=== PATIENT | male | born 1990 | race Hispanic/Latino ===

== ENCOUNTER 2020-05-03 04:46 | Emergency (ER) | payer OTHER ==
[2020-05-03] MEDS ORDERED: SODIUM CHLORIDE 0.9% 1000ML 1,000 ML IV ONE (04:47)
[2020-05-03] MEDS ORDERED: KETOROLAC TROMETHAMINE 30MG/ML ONE (05:40)
== END 2020-05-03 07:55 | disposition home or self-care (01) ==
LOC: EDH 04:46
DX: R51.9 Headache, unspecified (principal); R11.2 Nausea with vomiting, unspecified; Z20.828 Contact with and (suspected) exposure to other viral communicable diseases
CPT/HCPCS: 70450; 87426; 96361; 96374; 99284; J1885; J7030; U0003

== ENCOUNTER 2022-06-14 17:48 | Emergency (ER) | payer BC, OTHER ==
[~2022-06-14] VITALS: Ht 162.6 cm; Wt 77.1 kg
[2022-06-14] MEDS ORDERED: IBUP-2070 PO (19:28)
[2022-06-14] MEDS ORDERED: CYCL10TA16 PO (19:28)
[2022-06-14 20:25] VITALS: BP 147/81
== END 2022-06-14 20:29 | disposition home or self-care (01) ==
LOC: EDH 17:48
DX: G43.909 Migraine, unspecified, not intractable, without status migrainosus (principal); Z79.899 Other long term (current) drug therapy
CPT/HCPCS: 70450

== ENCOUNTER 2022-12-23 13:08 | Emergency (ER) | payer BC ==
[~2022-12-23] VITALS: Ht 165.1 cm; Wt 78.0 kg
[~2022-12-23 13:08] MED LIST: CYCL10TA16 PO; IBUP-2070 PO
[2022-12-23 15:02] LABS: BASOPHILS % (AUTO) 0.4 % (0.0-5.0); EOSINOPHILS % (AUTO) 0.1 % (0.0-8.0); HEMATOCRIT 45.9 % (42-54); LYMPHOCYTES % (AUTO) 16.6 % (21.0-51.0); MEAN CORPUSCULAR HEMOGLOBIN 29.1 pg (27.0-33.0); MEAN CORPUSCULAR HGB CONC 33.8 g/dL (32.0-36.0); MEAN CORPUSCULAR VOLUME 86.1 fL (79-99); MONOCYTES % (AUTO) 9.6 % (3.0-13.0); NEUTROPHILS % (AUTO) 72.9 % (40.0-77.0); PLATELET COUNT (AUTO) 220 K/uL (130-400); RED BLOOD CELL COUNT(AUTO) 5.33 MIL/uL (4.50-6.20); RED CELL DISTRIBUTION WIDTH 12.7 % (11.0-15.5)
[2022-12-23 15:13] LABS: POTASSIUM 3.8 mmol/L (3.5-5.1)
[2022-12-23 15:20] LABS: ALBUMIN 4.4 g/dL (3.5-5.0); TOTAL PROTEIN, SERUM 8.2 g/dL (6.0-8.3)
[2022-12-23 16:27] LABS: APPEARANCE,URINE CLEAR (CLEAR); BILIRUBIN,URINE NEGATIVE (NEGATIVE); COLOR,URINE YELLOW (YELLOW); GLUCOSE, URINE (UA) NEGATIVE (NEGATIVE); KETONES,URINE 20 mg/dL (NEGATIVE); LEUKOCYTE ESTERASE ,URINE NEGATIVE Leu/uL (NEGATIVE); NITRATE,URINE NEGATIVE (NEGATIVE); OCCULT BLOOD,URINE SMALL (NEGATIVE); PH,URINE 5.5 (5.0-8.0); PROTEIN,URINE 20 mg/dL (NEGATIVE); UROBILINOGEN,URINE 0.2 mg/dL (0.2-1.0)
[2022-12-23 16:40] LABS: MUCUS,URINE FEW LPF (None Seen); WBC,URINE 0-1 /HPF (0-1)
[2022-12-23] MEDS ORDERED: FLUT16H NASAL (16:50)
[2022-12-23] MEDS ORDERED: LORA10TA7 PO (16:50)
== END 2022-12-23 17:03 | disposition home or self-care (01) ==
LOC: EDH 13:08
DX: J01.90 Acute sinusitis, unspecified (principal); Z20.822 Contact with and (suspected) exposure to COVID-19
CPT/HCPCS: 99283; 87635; 80053; 85025; 87880; 87804 ×2; 81001; 36415; C9803

== ENCOUNTER 2024-08-05 21:20 | Emergency (ER) | payer SELFPAY ==
[~2024-08-05] VITALS: Ht 165.1 cm; Wt 79.4 kg
[~2024-08-05 21:20] MED LIST changes: +FLUT16H NASAL; +LORA10TA7 PO
[2024-08-05] MEDS: morPHINE 4 MG SYG IVP ONE (22:30)
[2024-08-05] MEDS: 0.9%NACL 1000ML 1,000 ML IV ONE (22:30)
[2024-08-05] MEDS: ondanSETRON 4MG INJ IVP ONE (22:30)
[2024-08-05] MEDS: PANTOPrazole 40 MG/VIAL IVP ONE (22:30)
[2024-08-05 22:37] LABS: BASOPHILS # (AUTO) 0.03 K/uL (0.00-0.20); BASOPHILS % (AUTO) 0.2 % (0.0-5.0); EOSINOPHILS # (AUTO) 0.12 K/uL (0.00-0.70); EOSINOPHILS % (AUTO) 0.9 % (0.0-8.0); HEMATOCRIT 44.6 % (42-54); IMMATURE GRANULOCYTE ABSOLUTE 0.04 K/uL (0-1); LYMPHOCYTES # (AUTO) 1.8 K/uL (1.0-4.8); MEAN CORPUSCULAR HEMOGLOBIN 30.2 pg (27.0-33.0); MEAN CORPUSCULAR HGB CONC 34.8 g/dL (32.0-36.0); MEAN CORPUSCULAR VOLUME 86.8 fL (79-99); MONOCYTES # (AUTO) 0.9 K/uL (0.1-1.0); NEUTROPHILS # (AUTO) 10.1 K/uL (1.8-7.7); NEUTROPHILS % (AUTO) 77.6 % (40.0-77.0); PLATELET COUNT (AUTO) 254 K/uL (130-400); RED BLOOD CELL COUNT(AUTO) 5.14 MIL/uL (4.50-6.20); RED CELL DISTRIBUTION WIDTH 12.8 % (11.0-15.5)
[2024-08-05 22:48] LABS: APPEARANCE,URINE CLEAR (CLEAR); BILIRUBIN,URINE NEGATIVE (NEGATIVE); COLOR,URINE YELLOW (YELLOW); GLUCOSE, URINE (UA) NEGATIVE (NEGATIVE); KETONES,URINE 40 mg/dL (NEGATIVE); LEUKOCYTE ESTERASE ,URINE NEGATIVE Leu/uL (NEGATIVE); NITRATE,URINE NEGATIVE (NEGATIVE); OCCULT BLOOD,URINE SMALL (NEGATIVE); PH,URINE 5.5 (5.0-8.0); PROTEIN,URINE 20 mg/dL (NEGATIVE); UROBILINOGEN,URINE 0.2 mg/dL (0.2-1.0)
[2024-08-05 22:49] LABS: ADD UA MICROSCOPIC YES
[2024-08-05 22:51] LABS: BACTERIA,URINE RARE /HPF (None Seen); MUCUS,URINE MANY LPF (None Seen)
[2024-08-05 22:53] LABS: CREATININE 0.9 mg/dL (0.5-1.3); POTASSIUM 4.3 mmol/L (3.5-5.1)
[2024-08-05 22:55] LABS: AMPHET/METH SCREEN,URINE NEGATIVE (NEGATIVE); BARBITURATE SCREEN, URINE NEGATIVE (NEGATIVE); BENZODIAZEPINES SCREEN,URINE NEGATIVE (NEGATIVE); CANNABINOID SCREEN,URINE NEGATIVE (NEGATIVE); COCAINE SCREEN,URINE NEGATIVE (NEGATIVE); OPIATE SCREEN,URINE NEGATIVE (NEGATIVE); PHENCYCLIDINE SCREEN,URINE NEGATIVE (NEGATIVE)
[2024-08-05] MEDS ORDERED: IOHEXOL 350 MG/ML 100ML INFUS..BTL IV ONE (23:17)
--- NOTE | 2024-08-05 23:41 | HMCIMG ---
CT ABDOMEN/PELVIS W/CONTRAST HISTORY: Abdominal pain COMPARISON: 09/14/2013 TECHNIQUE: Multiple sequential axial images of the abdomen and pelvis were obtained from the dome of the diaphragm through symphysis pubis. Patient was given 100 cc of Omnipaque through intravenous route. Oral contrast was not given. FINDINGS: No pleural effusion is seen bilaterally. There is no evidence of parenchymal disease or pulmonary nodule of the visualized lower lungs. Degenerative changes of the thoracolumbar spine are present. The heart is not enlarged. The liver, spleen, adrenal glands and pancreas are unremarkable. There is no evidence of hydronephrosis bilaterally. No evidence of renal stone is seen. Fecal material is seen in the colon. There are normal size retroperitoneal and mesenteric lymph nodes. No ascites is seen. No CT evidence of acute appendicitis is seen. Clinical correlation is recommended. There is mild fluid-filled small bowel loops and colon may be related to enterocolitis. Pelvic sidewalls are symmetric bilaterally. Bladder is poorly distended. IMPRESSION: 1. No CT evidence of acute appendicitis is seen. Clinical correlation is recommended. There is mild fluid-filled small bowel loops and colon may be related to enterocolitis. CT was performed with one or more following dose reduction techniques: automated exposure control, adjustment of the mA and kv according to patient's size, or use of a iterative reconstruction technique.
[2024-08-06] MEDS ORDERED: DICY20TA2 PO (00:16)
[2024-08-06] MEDS ORDERED: ONDA-243 PO (00:16)
--- NOTE | 2024-08-06 00:18 | ERN ---
ED Note History of Present Illness Stated Complaint: VOMITTING,MULTIPLE COMPLAINTS Chief Complaint: Abdominal Pain Time Seen by MD: 21:27 Time Seen by Midlevel: 21:27 Dictation: The patient is a 33-year-old male with no medical history who presents to the emergency department with nonbloody vomiting, nonbloody diarrhea onset this morning. Patient denies any fevers. Denies any cough or upper respiratory symptoms. Allergies: Coded Allergies: No Known Allergies (Unverified Allergy, Unknown, 11/16/18) Home Meds Active Scripts Loratadine (Loratadine) 10 Mg Tablet, 10 MG PO DAILY, #7 TAB Prov:NICOLE FRANCIS V POLICY ANALYST 12/23/22 Fluticasone Propionate (Flonase Nasal [place]) 50 Mcg/[place], 50 MCG NASAL DAILY PRN for NASAL CONGESTION for 10 Days, #1 SPRAY Prov:NICOLE FRANCIS V POLICY ANALYST 12/23/22 Cyclobenzaprine HCl (Flexeril) 10 Mg Tab, 10 MG PO TID PRN for HEADACHE, #24 TAB Prov:NICOLE FRANCIS V POLICY ANALYST 06/14/22 Ibuprofen (Ibuprofen) 600 Mg Tablet, 600 MG PO Q6H PRN for PAIN for 10 Days, #40 TAB Prov:NICOLE FRANCIS V POLICY ANALYST 06/14/22 Past Medical History Past Medical History: No Pertinent History Surgical History: None RN Note Reviewed/Agreed w/PFSH: Yes Review of System Dictation Constitutional: Negative for fever,chills, and weight loss Eyes: Negative for injury, pain,redness, and discharge ENT: Negative for injury,pain or swelling Cardiovascular: Negative for chest pain, palpitations, and edema Respiratory: Negative for shortness of breath, cough, and wheezing, Abdomen/GI: Negative for and constipation positive for abdominal pain, nausea, vomiting, diarrhea, Back: Negative for injury and pain : Negative for injury, bleeding and discharge MS/Extremity: Negative for injury and deformity Skin: Negative for rash, and discoloration Neuro: Negative for headache, weakness, numbness, tingling, and seizure Psych: Negative for suicide ideation, homicidal ideation, and hallucinations Initial Vital Sign VS Vital Signs Date Time Temp Pulse Resp B/P (MAP) Pulse Ox O2 Delivery O2 Flow Rate FiO2 08/05/24 21:40 97.0 92 20 130/71 97 Room Air 08/05/24 22:07 0 21 Physical Exam Dictation Vital Signs reviewed General Appearance: Alert, oriented x 3, no acute distress, well developed, nourished. Head and Face: non-traumatic. Eyes: PERRL, pink conjunctivas, eyelid no trauma, anterior chamber with arcus senilis. Ears: Pinnas intact and no signs of trauma or erythema ear canals clear and no discharge TM no erythema Nose: No discharge, no bleeding. Oropharynx: Mouth normal, tongue pink. pharynx clear,no erythema, tonsils no exudates, no abscesses noted, mucous membrane moist Neck: Supple, non-tender, no thyromegaly, no masses, no JVD, no bruits Breast:Deferred Chest:No tenderness, no crepitus, no paradoxical movement, no retractions Lungs:Clear, well-ventilated, symmetric, no rales, no wheezing, no rhonchi, no stridor, good breath sounds bilaterally Heart: Regular rate, regular rhythm, no murmur, no gallops Vascular: no peripheral edema, Abdomen: Soft, positive bowel sounds, nondistended, no guarding, nontender, no rebound, no masses no hepatomegaly, no splenomegaly, no Gross's sign, no hernias. Rectal: Deferred Genital: Deferred Neurological: Normal speech, motor function intact, sensory function intact Musculoskeletal: Neck nontender, full range of motion, back nontender, full range of motion, Extremities: nontender, full range of motion Skin: Color pink, dry, no turgor, no rash, no lacerations, no abrasions, no contusions. Lymphatic: Deferred Results (Laboratory/Radiology) Laboratory/Radiology Laboratory Tests Test 08/05/24 22:10 08/05/24 22:29 Urine Color YELLOW (YELLOW) Urine Appearance CLEAR (CLEAR) Urine pH 5.5 (5.0-8.0) Urine Specific [place] 1.036 (1.001-1.031) Urine Protein 20 mg/dL (NEGATIVE) H Urine Glucose (UA) NEGATIVE mg/dL (NEGATIVE) Urine Ketones 40 mg/dL (NEGATIVE) H Urine Occult Blood SMALL (NEGATIVE) H Urine Nitrate NEGATIVE (NEGATIVE) Urine Bilirubin NEGATIVE mg/dL (NEGATIVE) Urine Urobilinogen 0.2 mg/dL (0.2-1.0) Urine Leukocyte Esterase NEGATIVE Ian/uL Urine RBC 2-5 /HPF (0-1) H Urine WBC 2-5 /HPF (0-1) H Urine Bacteria RARE /HPF (None Seen) Urine Opiates Screen NEGATIVE (NEGATIVE) Urine Barbiturates Screen NEGATIVE (NEGATIVE) Urine Phencyclidine Screen NEGATIVE (NEGATIVE) Urine Amphetamines Screen NEGATIVE (NEGATIVE) Urine Benzodiazepines Screen NEGATIVE (NEGATIVE) Urine Cocaine Screen NEGATIVE (NEGATIVE) Urine Marijuana (THC) Screen NEGATIVE (NEGATIVE) White Blood Count 13.0 K/uL (4.8-10.8) H Red Blood Count 5.14 MIL/uL (4.50-6.20) Hemoglobin 15.5 g/dL (14.0-18.0) Hematocrit 44.6 % (42-54) Mean Corpuscular Volume 86.8 fL (79-99) Mean Corpuscular Hemoglobin 30.2 pg (27.0-33.0) Mean Corpuscular Hemoglobin Concent 34.8 g/dL (32.0-36.0) Red Cell Distribution Width 12.8 % (11.0-15.5) Platelet Count 254 K/uL (130-400) Mean Platelet Volume 10.6 fL (7.5-10.5) H Immature Granulocyte % (Auto) 0.3 % (0-1) Neutrophils (%) (Auto) 77.6 % (40.0-77.0) H Lymphocytes (%) (Auto) 14.0 % (21.0-51.0) L Monocytes (%) (Auto) 7.0 % (3.0-13.0) Eosinophils (%) (Auto) 0.9 % (0.0-8.0) Basophils (%) (Auto) 0.2 % (0.0-5.0) Neutrophils # (Auto) 10.1 K/uL (1.8-7.7) H Lymphocytes # (Auto) 1.8 K/uL (1.0-4.8) Monocytes # (Auto) 0.9 K/uL (0.1-1.0) Eosinophils # (Auto) 0.12 K/uL (0.00-0.70) Basophils # (Auto) 0.03 K/uL (0.00-0.20) Absolute Immature Granulocyte (auto 0.04 K/uL (0-1) Nucleated Red Blood Cells 0.0 % (0.0-0.19) Sodium Level 138 mmol/L (136-145) Potassium Level 4.3 mmol/L (3.5-5.1) Chloride Level 101 mmol/L (101-111) Carbon Dioxide Level 28 mmol/L (21-32) Blood Urea Nitrogen 21 mg/dL (7-18) H Creatinine 0.9 mg/dL (0.5-1.3) Glomerular Filtration Rate Calc 117 mL/min (>90) Random Glucose 103 mg/dL (70-105) Total Calcium 9.1 mg/dL (8.5-10.1) Magnesium Level 2.00 mg/dL (1.80-2.40) Lipase 26 U/L (16-77) REASON: generalized abd pain, n,v ORDERING PHYSICIAN: LOULOU MAK PROCEDURE: ABD PEL W - CT ABDOMEN/PELVIS W/CONTRAST CT ABDOMEN/PELVIS W/CONTRAST HISTORY: Abdominal pain COMPARISON: 09/14/2013 TECHNIQUE: Multiple sequential axial images of the abdomen and pelvis were obtained from the dome of the diaphragm through symphysis pubis. Patient was given 100 cc of Omnipaque through intravenous route. Oral contrast was not given. FINDINGS: No pleural effusion is seen bilaterally. There is no evidence of parenchymal disease or pulmonary nodule of the visualized lower lungs. Degenerative changes of the thoracolumbar spine are present. The heart is not enlarged. The liver, spleen, adrenal glands and pancreas are unremarkable. There is no evidence of hydronephrosis bilaterally. No evidence of renal stone is seen. Fecal material is seen in the colon. There are normal size retroperitoneal and mesenteric lymph nodes. No ascites is seen. No CT evidence of acute appendicitis is seen. Clinical correlation is recommended. There is mild fluid-filled small bowel loops and colon may be related to enterocolitis. Pelvic sidewalls are symmetric bilaterally. Bladder is poorly distended. IMPRESSION: 1. No CT evidence of acute appendicitis is seen. Clinical correlation is recommended. There is mild fluid-filled small bowel loops and colon may be related to enterocolitis. CT was performed with one or more following dose reduction techniques: automated exposure control, adjustment of the mA and kv according to patient's size, or use of a iterative reconstruction technique. Labs Reviewed?: Yes ED Course ED Course Orders Procedure Category Date Status Time Cbc With Differential LAB 08/05/24 Complete 21:59 Urinalysis Profile LAB 08/05/24 Complete 21:59 0.9%Nacl 1000ml (Ns PHA 08/05/24 Complete 1000ml) 22:00 Morphine 4mg Syg PHA 08/05/24 Complete (Morphine 4mg Syg) 22:00 Ondansetron 4mg Inj PHA 08/05/24 Complete (Zofran 4mg Inj) 22:00 Pantoprazole 40mg Inj PHA 08/05/24 Complete (Protonix 40mg Inj 22:00 Lipase LAB 08/05/24 Complete 21:59 Basic Metabolic Panel LAB 08/05/24 Complete 21:59 Magnesium LAB 08/05/24 Complete 21:59 Drug Screen Urine LAB 08/05/24 Complete 21:59 Ct Abdomen/Pelvis CT 08/05/24 Resulted W/Contrast 22:57 Iohexol (Omnipaque) PHA 08/05/24 Complete 23:17 Current Medications Medications (Trade) Dose Ordered Sig/Garrett Route PRN Reason Start Time Stop Time Status Last Admin Dose Admin Iohexol (Omnipaque) 35,000 mg STK-MED ONCE IV 08/05/24 23:17 08/05/24 23:18 DC Morphine Sulfate (morPHINE 4MG SYG) 4 mg ONCE ONCE IVP 08/05/24 22:00 08/05/24 22:01 DC 08/05/24 22:30 Ondansetron HCl (zoFRAN 4MG INJ) 4 mg ONCE ONCE IVP 08/05/24 22:00 08/05/24 22:01 DC 08/05/24 22:30 Pantoprazole Sodium (PROTonix 40MG INJ) 40 mg ONCE ONCE IVP 08/05/24 22:00 08/05/24 22:01 DC 08/05/24 22:30 Sodium Chloride 1,000 ml @ 0 mls/hr ONCE ONCE IV 08/05/24 22:00 08/05/24 22:01 DC 08/05/24 22:30 Vital Signs Date Time Temp Pulse Resp B/P (MAP) Pulse Ox O2 Delivery O2 Flow Rate FiO2 08/05/24 22:07 97.0 92 20 130/71 97 Room Air* 0 21 08/05/24 21:40 97.0 92 20 130/71 97 Room Air Medical Decision Making MDM The patient is a 33-year-old male with no medical history who presents to the emergency department with nonbloody vomiting, nonbloody diarrhea onset this morning. Patient denies any fevers. Reports generalized abdominal pain Denies any cough or upper respiratory symptoms. CBC showed mild leukocytosis, no anemia, chemistry showed no electrolyte imbala nce, normal renal function, negative lipase, urinalysis unremarkable, CT abdomen showed dilated loops probably related to enterocolitis. Patient in no acute distress, labs and imaging discussed with the patient who agrees to be discharged and follow up with the Pcp Differential diagnosis: Gastroenteritis, dehydration, electrolyte imbalance, appendicitis Need for hospitalization: Patient does not meet criteria for hospitalization. There are no social concerns with this patient. DX & DISP Disposition: Discharge Departure Impression: Primary Impression: Viral enteritis Additional Impressions: Nausea and vomiting, Diarrhea Condition: Stable Scripts Dicyclomine HCl (Bentyl) 20 Mg Tab 1 TAB PO TID for irritable bowel symptoms for 10 Days, #30 TAB 0 Refills Prov: LOULOU MAK 08/06/24 Ondansetron (Ondansetron Odt) 4 Mg Tab.rapdis 4 MG PO Q6HPRN PRN for nausea, #16 TAB 0 Refills Prov: LOULOU MAK 08/06/24 Referrals: CUCA CÁRDENAS MD (PCP) Time of Disposition: 00:16 I have reviewed the case, and I agree with, Diagnosis and Plan LOULOU MAK Aug 06, 2024 00:18
[2024-08-06 00:19] VITALS: BP 124/68; PULSE 94; RESP 18; TEMP 97.8; O2SAT 98
== END 2024-08-06 00:29 | disposition home or self-care (01) ==
LOC: EDH 21:20
DX: A08.4 Viral intestinal infection, unspecified (principal); Z79.899 Other long term (current) drug therapy
CPT/HCPCS: 99285; 74177; 96374; 96375; 83735; 80048; 80305; 83690; 85025; 36415; 81001; J7030; J2405; J2270; J2470; Q9967